=== PATIENT | female | born 1985 | race Caucasian/White ===

== ENCOUNTER 2016-08-26 23:02 | Emergency (ER) | payer OTHER | END 2016-08-27 07:55 | disposition home or self-care (01) | LOC: ER1 23:02 | DX: S62.614A Displaced fracture of proximal phalanx of right ring finger, initial encounter for closed fracture (principal); L02.413 Cutaneous abscess of right upper limb; L03.113 Cellulitis of right upper limb; F17.210 Nicotine dependence, cigarettes, uncomplicated; Z79.891 Long term (current) use of opiate analgesic; Z79.899 Other long term (current) drug therapy; Y04.0XXA Assault by unarmed brawl or fight, initial encounter; Y92.009 Unspecified place in unspecified non-institutional (private) residence as the place of occurrence of the external cause | CPT/HCPCS: 10061; 73130; 99283 ==